=== PATIENT | male | born 1995 | race Hispanic/Latino ===

== ENCOUNTER 2023-06-18 09:37 | Emergency (ER) | payer OTHER ==
[2023-06-18] MEDS ORDERED: Dexamethasone 10 MG/ML VIAL ONE (12:15)
== END 2023-06-18 12:15 | disposition home or self-care (01) ==
LOC: CSHERS 09:37
DX: J02.9 Acute pharyngitis, unspecified (principal); F17.210 Nicotine dependence, cigarettes, uncomplicated
CPT/HCPCS: 87081; 87430; 99283; J1100